=== PATIENT | male | born 1960 | race Caucasian/White ===

== ENCOUNTER → 2017-01-23 | Outpatient (CLI) | payer BC ==
[~2017-01-23] MED LIST: SUMA100T16 PO
[2017-01-23 12:29] LABS: MEAN CELL VOLUME 89.7 fL (80-100); MEAN CORPUSCULAR HEMOGLOBIN 30.4 pg (25-34); MEAN CORPUSCULAR HGB CONC 33.9 g/dl (32-36); MEAN PLATELET VOLUME 12.1 fL (7.4-10.4); PLATELET COUNT 160 K/uL (130-400); RED BLOOD COUNT 5.46 M/uL (4.7-6.1); WHITE BLOOD COUNT 5.81 K/uL (4.8-10.8)
[2017-01-23 12:40] LABS: ALT/SGPT 70 U/L (12-78); BLOOD UREA NITROGEN 12 mg/dl (7-18); BUN/CREATININE RATIO 10.5 (10-20); CALCIUM 9.4 mg/dl (8.5-10.1); CARBON DIOXIDE 28 mmol/L (21-32); CHLORIDE 106 mmol/L (98-107); GLUCOSE 105 mg/dl (70-99); SODIUM 138 mmol/L (136-145)
[2017-01-23 12:59] LABS: ALB/GLOB RATIO 1.2 (0.9-2); ALKALINE PHOSPHATASE 48 U/L (45-117); AST/SGOT 31 U/L (15-37)
[2017-01-23 17:50] LABS: URINE APPEARANCE TURBID (CLEAR); URINE BILIRUBIN NEG (NEG); URINE COLOR YELLOW; URINE EPITHELIAL CELL AUTO 0-5 /lpf (0-5); URINE NITRITE NEG (NEG); URINE PH 5.5 (4.5-7.5); UROBILINOGEN NEG (NEG); ZZUR CULT IF INDIC CLEAN CATCH NO
[2017-01-23 17:53] LABS: MANUAL MICROSCOPIC REQUIRED? NO; REVIEW REQ? NO
== END | disposition home or self-care (01) ==
LOC: C.LABBFT 11:00
PROVIDERS: ATTEND Physician Assistant Medical
DX: R60.0 Localized edema (principal); Z11.59 Encounter for screening for other viral diseases

== ENCOUNTER → 2017-07-15 | Outpatient (CLI) | payer BC ==
--- NOTE | 2017-07-15 08:52 | DIAGNOSTIC IMAGING REPORT ---
TESTICULAR ULTRASOUND HISTORY: Right testicular pain. COMPARISON: None. FINDINGS: Right testis: 3.9 x 3.1 x 2.2 cm. There are no intratesticular masses. Normal color flow. No hydrocele. The epididymis is unremarkable. Left testis: 3.9 x 2.8 x 2.3 cm. There are no intratesticular masses. Normal color flow. No hydrocele. The epididymis is unremarkable. Small varicocele. IMPRESSION: 1. Normal bilateral testes. 2. Small left-sided varicocele. Electronically signed by: Flo Kimble M.D. 07/15/2017 8:51 AM Dictated Date/Time: 07/15/2017 8:48 AM
== END | disposition home or self-care (01) ==
LOC: C.ULTR 07:52
PROVIDERS: ATTEND Internal Medicine
DX: N50.811 Right testicular pain (principal); I86.1 Scrotal varices

== ENCOUNTER → 2017-10-10 | Outpatient (CLI) | payer BC ==
[~2017-10-10] VITALS: Ht 180.3 cm; Wt 105.9 kg
[2017-10-10 13:32] VITALS: BP 160/97; PULSE 92; Ht 180.3 cm; Wt 105.9 kg
== END | disposition home or self-care (01) ==
LOC: C.NEUR 13:08
PROVIDERS: ATTEND Internal Medicine Pulmonary Disease
DX: R06.83 Snoring (principal); R53.83 Other fatigue; R06.81 Apnea, not elsewhere classified; G47.61 Periodic limb movement disorder

== ENCOUNTER → 2017-10-28 | Outpatient (CLI) | payer BC ==
--- NOTE | 2017-10-29 06:17 | SPLIT NIGHT TECHNICIAN REPORT ---
[facility] Split Night Polysomnogram - Behavioral Health Care Coordinator Report Study date: 10/28/2017 Referring Physician: PAM HAYWARD M.D. Name: BILLLEEROY Behavioral Health Care Coordinator: Lou Wells, PSGT. Date of : 1960 Height: 57 years, Height 5' 11" Sex: Male Weight: 233 lbs Age: 57 Neck Circum:17.5 inches BMI: Medications: 32.49 Sumatriptan 100 mg. Patient History 57 yr. old male presents to the sleep lab with loud snoring, fatigue, witnessed apnea, and leg movements. Ess= 14, Neck = 17.5 inches. Parameters Monitored NPSG: E1-M2, E2-M1, Fp1-M2, Fp2-M1, F3-M2, F4-M2, F4-M1, C3-M2, C4-M2, C4-M1, O1-M2, O2-M2, O2-M1, T3-M2, T4-M1, P3-M2, P4-M1, CHIN1, CHIN2, HR, EKG, Legs, PFLOW, SNOR, FLOW, CFLOW, Tidal Volume, THOR, ABDO, SpO2, PLTH, CPRESS, ETCO2 Wave, ETCO2, pH SLEEP SUMMARY DATA DIAGNOSTIC TREATMENT Lights Out: 8:59:03 PM NONE Lights On: 2:03:03 AM 5:44:03 AM Total Recording Time (TRT): 302.8 min. 210.7 min. Total Sleep Time (TST): 241.0 min. 181.0 min. NREM Time: 203.0 min. 117.0 min. REM Time: 38.0 min. 64.0 min. Sleep Period Time (SPT): 271.0 min. 182.5 min. Sleep Efficiency (SE): 80 % 87 % Sleep Latency: 31.5 min. NONE min. Arousal Index: 14.2 5.3 PAP Treatment Levels: 4, 5, 7, 8, 9, 10 * Optimal Pressure(s) SLEEP STAGING DATA DIAGNOSTIC TREATMENT Duration (min) TST % Duration (min) TST % Stage Wake: 61.8 min. -- 29.7 min. -- WASO: 31.5 min. -- 1.5 min. -- NREM: 203.0 min. 84 % 117.0 min. 65 % Stage N1: 19.5 min. 8 % 8.5 min. 5 % Stage N2: 183.5 min. 76 % 97.5 min. 54 % Stage N3: 0.0 min. 0 % 11.0 min. 6 % REM: 38.0 min. 16 % 64.0 min. 35 % POSITIONAL DATA Event Count Index Event Count Index Supine: 22 28 26 21.2 Supine NREM: 22 27.5 22 29.2 Supine REM: N/A N/A 4 8 Non-Supine: 42 12.4 16 8.9 Non-Supine NREM: 17 5.8 5 4.2 Non-Supine REM: 25 39.5 11 18.6 AROUSAL SUMMARY DATA: Event Count Index Event Count Index Apnea Arousals: 0 2.0 0 0.0 Hypopnea Arousals: 10 2.5 1 0.3 Snore Arousals: 20 5.0 4 1.3 PLM Arousals: 8 2.0 1 0.3 Non-Specific Arousals: 17 4.2 10 3.3 Total Arousals: 57 14.2 16 5.3 MYOCLONUS (PLM) Event Count Index Event Count Index PLM: 70 17.4 4 1.3 PLM AROUSAL: 8 2.0 1 0.3 PLM W/O AROUSAL 70 17.4 3 1.0 PLM W/RESP EVENT 1 0.0 0 0.0 MYOCLONUS (PLM) Event Count Index Event Count Index LM: 2 16.7 14 4.6 LM AROUSAL: 2 0.5 0 0.0 LM W/O AROUSAL LM W/RESP EVENT LM NON SPECIFIC 122 30.4 17 5.6 HEART RATE DATA DIAGNOSTIC TREATMENT Sleep (bpm): 83 78 REM (bpm): 88 91 NREM (bpm): 89 90 Tachycardia Count: 0 0 Tachycardia Duration: 0.00 0 Bradycardia Count: 0 0 Bradycardia Duration: 0.00 0 DIAGNOSTIC PORTION TREATMENT PORTION RESPIRATORY DATA Event Count Index Event Count Index AHI: -- 15.4 -- 13.9 RDI: -- 15.9 -- 14 Obstructive Apnea: 6 1.5 0 0.0 Central Apnea: 0 0.0 0 0.0 Mixed Apnea: 2 0.5 0 0.0 Hypopnea: 54 13.4 42 13.9 RERA: 2 0.5 0 0.0 Total Apneas: 8 2.0 0 0.0 RESPIRATORY DATA REM NREM SLEEP REM NREM SLEEP Supine Position: Obstructive Apneas: N/A 0 0 0 0 0 Central Apneas: N/A 0 0 0 0 0 Mixed Apneas: N/A 0 0 0 0 0 Hypopneas: N/A 22 22 4 22 26 RERA N/A 0 0 0 0 0 Total Supine Events: N/A 22 22 4 22 26 Supine AHI: N/A 27.5 28 8 29.2 21.2 Supine RDI: N/A 27.5 27.5 8.4 29.2 21.2 REM NREM SLEEP REM NREM SLEEP Non-Supine Position: Obstructive Apneas: 5 1 6 0 0 0 Central Apneas: 0 0 0 0 0 0 Mixed Apneas: 2 0 2 0 0 0 Hypopneas: 18 14 32 11 5 16 RERA 0 2 2 0 0 0 Total Supine Events: 25 17 42 11 5 16 Supine AHI: 39.5 5.8 12.4 18.6 4.2 8.9 Supine RDI: 39.5 6.6 13.1 18.6 4.2 8.9 OXYGEN DESTAURATION DATA: Event Count Index Event Count Index REM Desaturations: 30 47.4 19 17.8 NREM Desaturations: 55 16.3 35 17.9 SNORE DATA DIAGNOSTIC TREATMENT Snore Time: 58.8 2:38:03 AM Snore TST%: 15 15 Snore Arousal Count: 20 4 Snore Arousal Index: 5.0 1.3 Desaturation Event Summary: Minimum %SpO2 Event Count Mean/Min/Max Duration(sec.) Desaturation Index % Time In Bed > 90 112 31.0 / 7.5 / 57.5 36.6 35.9 86 - 90 63 26.1 / 7.5 / 53.3 12.2 60.8 81 - 85 1 8.5 / 8.5 / 8.5 4.4 2.7 76 - 80 0 N/A 0.0 0.5 71 - 75 0 N/A 0.0 0.1 66 - 70 0 N/A 0.0 0.0 61 - 65 0 N/A 0.0 0.0 56 - 60 0 N/A 0.0 0.0 51 - 55 0 N/A 0.0 0.0 < 50 0 N/A 0.0 0.0 OXYGEN SATURATION DATA DIAGNOSTIC TREATMENT SpO2 Mean Sleep: 89 % 91 % SpO2 Mean REM: 88 % 91 % SpO2 Mean NREM: 89 % 90 % SpO2 Minimum Sleep: 73 % 85 % SpO2 Minimum REM: 73 % 85 % SpO2 Minimum NREM: 82 % 85 % Time Below 90% (TST): 143.2 32.1 Time Below 88% (TST): 34.1 8.4 Total REM NREM Awake <50% 0.0 min. 0.0 min. 0.0 min. 0.0 min. 51 - 60% 0.0 min. 0.0 min. 0.0 min. 0.0 min. 61 - 70% 0.0 min. 0.0 min. 0.0 min. 0.0 min. 71 - 80% 3.2 min. 3.2 min. 0.0 min. 0.0 min. 81 - 90% 324.8 min. 40.5 min. 228.5 min. 55.8 min. 91 - 100% 183.7 min. 58.3 min. 91.5 min. 34.0 min. Average 90 90 90 90 Minimum SpO2 73 73 82 84 Desaturation Event Index 16.3 28.8 16.9 0.7 # Desat. Events below 89% 106 31 75 0 Time(%) with Saturation below 89% 19.8 4.0 14.8 1.0 Time(min.) with Saturation below 89% 101.4 20.5 75.7 5.2 Recording Behavioral Health Care Coordinator Comments: Split -Night: Mr. Blanco slept in the right, left, and supine positions. No cardiac arrhythmia. PLM's noted. No bruxism noted. Snoring was noted and scored as a 4 on a scale of 1 through 5. (0=no snoring, 5=snoring loud enough to be heard through a closed door or down the beck way) At 2:03 am, MR. Blanco has met specific Split-Night criteria during the diagnostic portion of this study. CPAP was initiated at +4 CMH2O and up-titrated to an optimal level of +10 CMH2O, which nearly eliminated all respiratory events and snoring. A large Res Med Air fit F 10, was used during titration Mr. Blanco awoke to use the restroom one time during the night. Mr. Blanco stated, I did not sleep as well as I do when I am in my own bed. The final report will be interpreted and signed by a sleep physician. The completed physician report will then be placed in the patient medical record. At 5:10 Mr. Blanco rolled to his back and increases were made until the time he woke, most of his apneas happen while supine. Therapy Event: Therapy (cm H20) 0 4 5 7 8 9 10 Total Time at Pressure (min.) 302.8 42.3 121.3 14.4 9.3 2.6 19.4 TST at Pressure (min.) 241.0 18.6 120.8 13.9 9.3 2.6 15.9 # Periods 1 1 1 1 1 1 1 Sleep Onset (min.) 31.5 23.7 0.0 0.0 0.0 0.0 0.0 REM Onset (min.) 76.0 35.7 0.0 0.7 N/A N/A N/A Sleep Efficiency % 79 43 99 96 100 100 81 Wakefulness (%) 20.4 56.1 0.4 3.5 0.0 0.0 18.1 Wakefulness (min.) 61.8 23.7 0.5 0.5 0.0 0.0 3.5 NREM 1 (%) 6.4 11.8 2.9 0.0 0.0 0.0 0.0 NREM 1 (min.) 19.5 5.0 3.5 0.0 0.0 0.0 0.0 NREM 2 (%) 60.6 16.6 43.6 68.7 100.0 100.0 81.9 NREM 2 (min.) 183.5 7.0 52.8 9.9 9.3 2.6 15.9 NREM 3 (%) 0.0 0.0 9.1 0.0 0.0 0.0 0.0 NREM 3 (min.) 0.0 0.0 11.0 0.0 0.0 0.0 0.0 REM (%) 12.5 15.5 44.1 27.8 0.0 0.0 0.0 REM (min.) 38.0 6.6 53.4 4.0 0.0 0.0 0.0 # Arousals 57 0 12 1 0 0 3 Arousal Index 14.2 0.0 6.0 4.3 0.0 0.0 11.4 # Snore 2,187 165 531 81 92 17 128 Snore Index 544.5 533.7 263.8 349.9 590.6 397.5 484.3 AHI 15.4 9.7 7.0 34.6 57.8 46.8 22.7 AHI Supine 27.5 9.7 2.7 54.9 57.8 46.8 22.7 AHI Non-Supine 12.4 N/A 7.9 21.4 N/A N/A N/A NREM AHI 10.9 0.0 1.8 48.5 57.8 46.8 22.7 REM AHI 39.5 27.5 13.5 0.0 N/A N/A N/A RDI 15.9 9.7 7.0 34.6 57.8 46.8 22.7 # Obstructive 6 0 0 0 0 0 0 # Central Ap 0 0 0 0 0 0 0 # Mixed 2 0 0 0 0 0 0 # Hypopneas 54 3 14 8 9 2 6 RERAS 2 0 0 0 0 0 0 Total Respiratory Events 64 3 14 8 9 2 6 Time Below SpO2 89.00% (min.) 78.1 2.3 0.6 3.0 4.7 1.3 6.2 Mean NREM SpO2 (%) 89 90 91 90 89 90 90 Mean REM SpO2 (%) 88 89 92 95 N/A N/A N/A Mean Sleep SpO2 (%) 89 90 91 91 89 90 90 Min NREM SpO2 (%) 82 89 89 86 85 86 86 Min REM SpO2 (%) 73 85 85 93 N/A N/A N/A Position Supine (min.) 47.9 18.6 21.9 5.5 9.3 2.6 15.9 Position Non-supine (min.) 193.1 0.0 98.9 8.4 0.0 0.0 0.0 LM Index Sleep 34.1 12.9 6.0 0.0 0.0 0.0 7.6 LM Index NREM 31.9 5.0 0.9 0.0 0.0 0.0 7.6 LM Index REM 45.8 27.5 12.3 0.0 N/A N/A N/A Mean Heart Rate (bpm) 83 81 79 76 74 74 74 Min Heart Rate (bpm) 70 73 70 70 71 70 66
--- NOTE | 2017-10-30 12:37 | POLYSOMNOGRAPH REPORT ---
CLINICAL DATA: A 57-year-old male with BMI of 32.[address] Jose Baxter and myself for evaluation of loud snoring, witnessed apnea, fatigue and frequent leg movements at night. This was a split night study. SLEEP ARCHITECTURE: For the diagnostic portion of the study, sleep period time was 271 minutes. Total sleep time was 241 minutes divided between 203 minutes of non-REM sleep and 38 minutes of REM sleep. Sleep latency was 31.5 minutes. Sleep efficiency was 80%. Sleep consisted of stage N1 8%, stage N2 76%, and REM 16%. For the treatment portion of the study, sleep period time was 182.5 minutes. Total sleep time was 181 minutes divided between 117 minutes of non-REM sleep and 64 minutes of REM sleep. Sleep latency was immediate. Sleep efficiency was 87%. Sleep consisted of stage N1 5, stage N2 54%, stage N3 6%, and REM 35%. AROUSAL DATA: Prior to treatment, 57 arousals were recorded for an index of 14.2 per hour. During treatment, 16 arousals were recorded for an index of 5.3 per hour. PLM DATA: Prior to treatment, 122 limb movements during sleep were noted for an index of 30.4 per hour. During treatment, 17 limb movements during sleep were noted for an index of 5.6 per hour. EKG: Heart rates ranged from 78-91 beats per minute. No arrhythmias were noted. RESPIRATORY DATA: Moderate sleep apnea was diagnosed prior to treatment. The diagnostic AHI was 15.4. The diagnostic RDI was 15.9. There were 6 obstructive apneic episodes and 2 mixed apneic episodes. There were 54 hypopneic episodes recorded. There were 2 RERAs. During treatment, the average AHI was 13.9. There were 42 hypopneic episodes. OXIMETRY DATA: Nocturnal hypoxemia was seen prior to treatment. Oxygen joey was 73% during REM sleep prior to treatment. Mean saturation with treatment was 91%. CRYSTAL CALIBRATOR'S COMMENTS AND TREATMENT SUMMARY: The patient slept in the right, left, and supine position. Snoring was severe, rated 4 on a scale of 1-5. At 2:03 a.m. the patient met split night criteria. A large ResMed AirFit F10 mask was used. The patient was titrated up to 10 cm water pressure. At his final pressure setting he slept for 16 minutes with an AHI of 22.7. No optimal pressure was obtained during the time available for CPAP titration. IMPRESSION: Moderate sleep apnea/hypopnea with nocturnal hypoxemia with incomplete CPAP titration. No optimal pressure was obtained. RECOMMENDATIONS: The patient should be considered for use of auto CPAP. MTDD
== END | disposition home or self-care (01) ==
LOC: C.NEUR 20:00
PROVIDERS: ATTEND Internal Medicine Pulmonary Disease
DX: G47.30 Sleep apnea, unspecified (principal); G47.61 Periodic limb movement disorder